=== PATIENT | male | born 1975 | race African-American/Black ===

== ENCOUNTER 2018-08-12 13:20 | Emergency (ER) | payer OTHER ==
[2018-08-12 13:36] VITALS: BP 122/78; PULSE 82; TEMP 98; BMI 32.5
[2018-08-12] MEDS ORDERED: DIPHTH,PERTUSS(ACELL),TET 0.5 ML DISP.SYRIN IM ONE ×2 (14:27→14:31)
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
[2018-08-12] MEDS ORDERED: KETOROLAC TROMETHAMINE 60 MG/2 ML VIAL IM ONE (14:35)
[2018-08-12] MEDS ORDERED: KETOROLAC TROMETHAMINE 60 MG/2 ML VIAL ONE (14:35)
== END 2018-08-12 14:58 | disposition home or self-care (01) ==
LOC: JERFT 13:20
PROC: 3E0234Z Introduction of Serum, Toxoid and Vaccine into Muscle, Percutaneous Approach (ICD-10-PCS; principal; 2018-08-12)
PROC: 3E0233Z Introduction of Anti-inflammatory into Muscle, Percutaneous Approach (ICD-10-PCS; 2018-08-12)
PROC: 0JQH0ZZ Repair Left Lower Arm Subcutaneous Tissue and Fascia, Open Approach (ICD-10-PCS; 2018-08-12)
DX: S61.512A Laceration without foreign body of left wrist, initial encounter (principal); W45.8XXA Other foreign body or object entering through skin, initial encounter; W22.8XXA Striking against or struck by other objects, initial encounter; Y93.H2 Activity, gardening and landscaping; Y92.017 Garden or yard in single-family (private) house as the place of occurrence of the external cause; Y99.8 Other external cause status
CPT/HCPCS: 12002-25; 90471; 90715; 96372; 99281-25

== ENCOUNTER 2018-10-10 11:52 | Emergency (ER) | payer OTHER ==
[2018-10-10 12:15] VITALS: BP 108/79; PULSE 77; TEMP 98; BMI 25.6
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
--- NOTE | 2018-10-11 15:38 | EKG ---
Test Reason : Blood Pressure : / mmHG Vent. Rate : 076 BPM Atrial Rate : 076 BPM P-R Int : 150 ms QRS Dur : 084 ms QT Int : 364 ms P-R-T Axes : 059 014 032 degrees QTc Int : 409 ms NORMAL SINUS RHYTHM WITH SINUS ARRHYTHMIA NORMAL ECG NO PREVIOUS ECGS AVAILABLE Confirmed by MD Bob, Everette ([id number]) on 10/11/2018 3:38:22 PM Referred By: Confirmed By:Everette Rojas MD
== END 2018-10-10 13:11 | disposition home or self-care (01) ==
LOC: JER 11:52 → JERFT 11:52
DX: L08.9 Local infection of the skin and subcutaneous tissue, unspecified (principal)
CPT/HCPCS: 93005; 93010; 99281-25

== ENCOUNTER 2018-12-16 09:54 | Emergency (ER) | payer OTHER ==
[2018-12-16 09:58] VITALS: BP 129/70; PULSE 80; TEMP 98.1; BMI 29.2
[2018-12-16] MEDS ORDERED: LIDOCAINE 5% TOPICAL PATCH TP ONE (10:26)
[2018-12-16] MEDS ORDERED: KETOROLAC TROMETHAMINE 60 MG/2 ML VIAL IM ONE (10:26)
[2018-12-16] MEDS ORDERED: CYCLOBENZAPRINE HCL 10 MG TABLET (FP) PO ONE (10:26)
[2018-12-16] MEDS ORDERED: LIDOCAINE 5% TOPICAL PATCH ONE (10:28)
[2018-12-16] MEDS ORDERED: CYCLOBENZAPRINE HCL 10 MG TABLET (FP) ONE (10:28)
[2018-12-16] MEDS ORDERED: KETOROLAC TROMETHAMINE 60 MG/2 ML VIAL ONE (10:28)
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
== END 2018-12-16 10:51 | disposition home or self-care (01) ==
LOC: JERFT 09:54
PROC: 3E0233Z Introduction of Anti-inflammatory into Muscle, Percutaneous Approach (ICD-10-PCS; principal; 2018-12-16)
DX: M54.41 Lumbago with sciatica, right side (principal)
CPT/HCPCS: 96372; 99281-25

== ENCOUNTER 2019-02-02 10:14 | Emergency (ER) | payer OTHER | END 2019-02-02 11:54 | disposition home or self-care (01) | LOC: JERFT 10:14 ==

== ENCOUNTER 2020-01-21 14:36 | Emergency (ER) | payer OTHER ==
[2020-01-21 14:39] VITALS: BP 151/80; PULSE 73; TEMP 98.1; BMI 30.8
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
== END 2020-01-21 15:11 | disposition home or self-care (01) ==
LOC: JERFT 14:36
DX: M70.32 Other bursitis of elbow, left elbow (principal)
CPT/HCPCS: 99282-25

== ENCOUNTER 2020-06-05 22:47 | Emergency (ER) | payer OTHER ==
[2020-06-05 23:06] VITALS: PULSE 76; TEMP 98.1; BMI 31.5
[2020-06-05] MEDS ORDERED: LIDOCAINE 5% TOPICAL PATCH TP ONE (23:50)
[2020-06-05] MEDS ORDERED: CYCLOBENZAPRINE HCL 10 MG TABLET (FP) PO ONE (23:50)
[2020-06-05] MEDS ORDERED: ACETAMINOPHEN 325 MG TABLET (FP) PO ONE (23:50)
[2020-06-06] MEDS ORDERED: ACETAMINOPHEN 325 MG TABLET (FP) ONE (00:02)
[2020-06-06] MEDS ORDERED: CYCLOBENZAPRINE HCL 10 MG TABLET (FP) ONE (00:02)
[2020-06-06] MEDS ORDERED: LIDOCAINE 5% TOPICAL PATCH ONE (00:03)
[2020-06-06 01:50] VITALS: BP 122/78
[2020-06-06] MEDS ORDERED: LIDOCAINE PATCH REMOVAL MC ONE (12:00)
== END 2020-06-06 01:51 | disposition home or self-care (01) ==
LOC: JER 22:47
DX: M54.5 Low back pain (principal); M54.2 Cervicalgia
CPT/HCPCS: 72070-TC-FY; 72100-TC-FY; 72125-TC; 99285-25

== ENCOUNTER 2020-06-08 19:25 | Emergency (ER) | payer OTHER ==
[2020-06-08 19:44] VITALS: BP 133/82; PULSE 80; TEMP 98.5; BMI 31.5
== END 2020-06-08 20:26 | disposition home or self-care (01) ==
LOC: JER 19:25 → JERFT 19:25
DX: S29.012A Strain of muscle and tendon of back wall of thorax, initial encounter (principal)
CPT/HCPCS: 99282-25